=== PATIENT | male | born 1945 | race Two or more races ===

== ENCOUNTER 2017-05-19 10:17 | Emergency (ER) | payer MEDICARE ==
[2017-05-19 10:29] VITALS: BP 149/85
--- NOTE | 2017-05-19 10:33 | UC ---
Throat Pain/Nasal Sanjay HPI - HPI Summary HPI Summary: Pt presents with 1.5 weeks of sinus pain/pressure/congestion and post nasal drip. Over the last 2-3 days has progressed into a productive cough with yellow thick phlegm. He says that he has smoked for many years and a few months ago he had a routine chest CT and they found a nodule - this makes him worried anytime he gets sick. Denies fever, chills, SOB, chest pain, abdominal pain, n/v/d/c. He does not have any inhalers he uses prn or daily at home. - History of Current Complaint Chief Complaint: UCGeneralIllness Stated Complaint: COUGH Hx Obtained From: Patient Onset/Duration: Gradual Onset Severity: Mild Pain Intensity: 2 Pain Scale Used: 0-10 Numeric Cough: Productive - Allergies/Home Medications Allergies/Adverse Reactions: Allergies Allergy/AdvReac Type Severity Reaction Status Date / Time No Known Allergies Allergy Verified 05/19/17 10:20 Home Medications: Home Medications Esomeprazole Magnesium [Nexium 24Hr] 2 tab PO DAILY 05/19/17 [History Confirmed 05/19/17] PMH/Surg Hx/FS Hx/Imm Hx GI/ History: Gastroesophageal Reflux - Surgical History Surgical History: Yes Surgery Procedure, Year, and Place: VASECTOMY/SCRAPING OF PROSTATE - Family History Known Family History: Positive: Unknown - Social History Occupation: Retired Lives: With Family Alcohol Use: 2xmonth Alcohol Amount: 2xmonth Substance Use Type: None Smoking Status (MU): Heavy Every Day Tobacco Smoker Cessation Counseling: Counseled 3+Min - 10 Min - Immunization History Most Recent Tetanus Shot: UTD Review of Systems Constitutional: Negative Skin: Negative Eyes: Negative ENT: Nasal Discharge, Sinus Congestion, Sinus Pain/Tenderness Respiratory: Cough Cardiovascular: Negative Gastrointestinal: Negative Neurological: Negative Psychological: Negative All Other Systems Reviewed And Are Negative: Yes Physical Exam - Summary Physical Exam Summary: GENERAL: NAD. WDWN. No pain distress. SKIN: No rashes, sores, ulcers, masses, lesions. HEENT: Head: AT/NC Eyes: Conjunctiva clear without inflammation or discharge. Ears: Hearing grossly normal. TMs intact, no bulging, erythema, or edema. Nose: Nasal mucosa pink and moist. NTTP maxillary and frontal sinus. Throat: Posterior oropharynx without exudates, erythema, or tonsillar enlargement. Uvula midline. NECK: Supple. Nontender. No lymphadenopathy. CHEST: Mild wheezing throughout. No r/r. No accessory muscle use. Breathing comfortably and in no distress. CV: RRR. Without m/r/g. Pulses intact. Brisk cap refill. NEURO: Alert. CN II-XII grossly intact. PSYCH: Age appropriate behavior. Triage Information Reviewed: Yes Vital Signs: Initial Vital Signs Temp 97.9 F 05/19/17 10:24 Pulse 75 05/19/17 10:24 Resp 18 05/19/17 10:24 BP 149/85 05/19/17 10:24 Pulse Ox 99 05/19/17 10:24 Throat Pain/Nasal Course/Dx - Course Course Of Treatment: CXR: IMPRESSION: No active cardiopulmonary disease is noted. Suspect bronchitis - given his extensive smoking history, will cover him with an antibiotic and provide him with a prn albuterol inhaler. - Differential Dx/Diagnosis Provider Diagnoses: Bronchitis Discharge - Sign-Out/Discharge Documenting (check all that apply): Discharge - Discharge Plan Condition: Stable Disposition: HOME Prescriptions: Albuterol HFA INHALER* [Ventolin HFA Inhaler*] 1 puff INH Q6H PRN #1 mdi PRN Reason: Wheezing Azithromycin TAB* [Zithromax TAB (Z-HELLEN) 250 mg #6 tabs] 2 tab PO .TODAY, THEN 1 DAILY #1 hellen Patient Education Materials: Acute Bronchitis (ED) Referrals: Tamar Lion MD [Primary Care Provider] - Additional Instructions: If you develop a fever, shortness of breath, chest pain, new or worsening symptoms - please call your PCP or go to the ED. Your blood pressure was high at todays visit. Please see your primary provider within 4 weeks for recheck and re-evaluation. - Billing Disposition and Condition Condition: STABLE Disposition: HOME
--- NOTE | 2017-05-19 11:07 | RAD ---
Indication: Cough. 2 views of the chest including dual energy PA views demonstrates no mediastinal shift. Heart is of normal size and configuration. Lung mccloud demonstrate no pleural fluid, pneumonia or pneumothorax. IMPRESSION: No active cardiopulmonary disease is noted.
== END 2017-05-19 11:26 | disposition home or self-care (01) ==
LOC: UCEAST 10:17
DX: J40 Bronchitis, not specified as acute or chronic (principal); K21.9 Gastro-esophageal reflux disease without esophagitis; Z71.6 Tobacco abuse counseling; F17.210 Nicotine dependence, cigarettes, uncomplicated
CPT/HCPCS: 71046; 99202; G0463